=== PATIENT | male | born 1980 | race American Indian/Alaskan Native ===

== ENCOUNTER 2017-08-07 21:09 | Emergency (ER) | payer BC ==
[2017-08-07] MEDS ORDERED: LIDOCAINE VISCOUS 2% PO ONE (22:16)
[2017-08-07] MEDS ORDERED: ALUM-MAG HYDROX-SIMETH 200-200-20MG/5ML PO ONE (22:16)
[2017-08-07] MEDS ORDERED: ZOFRAN IM ONE (22:17)
--- NOTE | 2017-08-07 22:23 | Emergency Department Report ---
ED Abdominal Pain HPI - General Chief Complaint: Abdominal Pain Stated Complaint: ABDOMINAL PAIN Time Seen by Provider: 08/07/17 22:11 Source: patient Mode of arrival: Ambulatory Limitations: No Limitations - History of Present Illness Initial Comments: Patient is a 37 years old male with no significant past medical history except for peptic ulcer. Patient presented with 3 weeks' history of epigastric abdominal pain does not radiate. Patient is also complaining of nausea but no vomiting. No other complaints. MD Complaint: abdominal pain -: week(s) Location: epigastric Radiation: none Migration to: no migration Severity: moderate Severity scale (0 -10): 5 Quality: sharp Consistency: intermittent Associated Symptoms: nausea, diarrhea. denies: vomiting, hematemesis, hematochezia, melena, hematuria - Related Data Previous Rx's Medication Instructions Recorded Last Taken Type Cyclobenzaprine [Flexeril] 10 mg PO Q8H PRN #21 tablet 04/05/15 Unknown Rx HYDROcodone/APAP 10-325 [[place] 1 each PO Q6HR PRN #20 tablet 04/05/15 Unknown Rx 10/325] Benzonatate [Tessalon Perles] 100 mg PO Q8HR PRN #30 capsule 10/26/15 Unknown Rx Allergies Allergy/AdvReac Type Severity Reaction Status Date / Time No Known Allergies Allergy Unverified 04/05/15 06:55 ED Review of Systems ROS: Stated complaint: ABDOMINAL PAIN Other details as noted in HPI Comment: All other systems reviewed and negative Constitutional: denies: chills, fever Respiratory: denies: cough, orthopnea, shortness of breath, SOB with exertion, SOB at rest, wheezing Cardiovascular: denies: chest pain, palpitations, dyspnea on exertion Gastrointestinal: abdominal pain, nausea, diarrhea. denies: vomiting, constipation, hematemesis, melena ED Past Medical Hx - Past Medical History Previous Medical History?: Yes Hx Hypertension: Yes Hx Psychiatric Treatment: Yes (schizophrenia) - Surgical History Past Surgical History?: Yes Additional Surgical History: jaw, neck - Social History Smoking Status: Current Some Day Smoker Substance Use Type: None - Medications Home Medications: Home Medications Medication Instructions Recorded Confirmed Last Taken Type Cyclobenzaprine [Flexeril] 10 mg PO Q8H PRN #21 tablet 04/05/15 Unknown Rx HYDROcodone/APAP 10-325 [[place] 1 each PO Q6HR PRN #20 tablet 04/05/15 Unknown Rx 10/325] Benzonatate [Tessalon Perles] 100 mg PO Q8HR PRN #30 capsule 10/26/15 Unknown Rx ED Physical Exam - General Limitations: No Limitations General appearance: alert, in no apparent distress - Head Head exam: Present: atraumatic, normocephalic, normal inspection - Eye Eye exam: Present: normal appearance, PERRL - ENT ENT exam: Present: normal exam, normal orophraynx, mucous membranes moist - Neck Neck exam: Present: normal inspection, full ROM. Absent: tenderness, meningismus, lymphadenopathy - Respiratory Respiratory exam: Present: normal lung sounds bilaterally. Absent: respiratory distress, wheezes, rales, rhonchi, chest wall tenderness - Cardiovascular Cardiovascular Exam: Present: regular rate, normal rhythm, normal heart sounds - GI/Abdominal GI/Abdominal exam: Present: soft, normal bowel sounds. Absent: distended, tenderness, guarding, rebound, rigid, organomegaly, mass, bruit, pulsatile mass , hernia - Extremities Exam Extremities exam: Present: normal inspection, full ROM, normal capillary refill - Back Exam Back exam: Present: normal inspection, full ROM. Absent: tenderness, CVA tenderness (R), CVA tenderness (L) - Neurological Exam Neurological exam: Present: alert, oriented X3, CN II-XII intact, normal gait - Skin Skin exam: Present: warm, intact, normal color ED Course Vital Signs 08/07/17 08/07/17 21:22 22:10 Temperature 98.5 F Pulse Rate 115 H Respiratory 16 16 Rate Blood Pressure 158/109 [Left] O2 Sat by Pulse 97 Oximetry - Reevaluation(s) Reevaluation #1: 08/07/17 23:47 Patient is stated that he is having much better. No abdominal pain no nausea no vomiting. ED Medical Decision Making - Lab Data Result diagrams: 08/07/17 22:33 08/07/17 22:33 Critical care attestation.: If time is entered above; I have spent that time in minutes in the direct care of this critically ill patient, excluding procedure time. ED Disposition Clinical Impression: Abdominal pain, Gastritis Disposition: DC-01 TO HOME OR SELFCARE Is pt being admited?: No Condition: Stable Instructions: Abdominal Pain (ED), Peptic Ulcer (ED) Referrals: MARIA R MANDEL MD [Primary Care Provider] - 3-5 Days
[2017-08-07 22:55] LABS: Basophils # (Auto) 0.1 K/mm3 (0.0-0.1); Basophils % (Auto) 0.8 % (0.0-1.8); Eosinophils # (Auto) 0.1 K/mm3 (0.0-0.4); Eosinophils % (Auto) 0.7 % (0.0-4.3); Hematocrit 41.3 % (35.5-45.6); Hemoglobin 13.6 gm/dl (11.8-15.2); Lymphocytes # (Auto) 4.1 K/mm3 (1.2-5.4); Lymphocytes % (Auto) 42.7 % (13.4-35.0); Mean Corpuscular HGB Conc 33 % (32-34); Mean Corpuscular Hemoglobin 28 pg (28-32); Mean Corpuscular Volume 85 fl (84-94); Monocytes # (Auto) 0.6 K/mm3 (0.0-0.8); Monocytes % (Auto) 5.9 % (0.0-7.3); Platelet Count 291 K/mm3 (140-440); Red Blood Count 4.88 M/mm3 (3.65-5.03); Red Cell Distribution Width 13.7 % (13.2-15.2)
[2017-08-07 23:08] LABS: Alanine Aminotransferase 12 units/L (7-56); Albumin 4.3 g/dL (3.9-5); BUN/Creatinine Ratio 12; Blood Urea Nitrogen 11 mg/dL (9-20); Calcium 9.1 mg/dL (8.4-10.2); Hemolysis Index 8
[2017-08-07 23:20] LABS: Bilirubin,Urine NEG (Negative); Blood,Urine NEG (Negative); Color,Urine Yellow (Yellow); Mucus,Urine FEW /HPF; Protein,Urine <15 mg/dL mg/dL (Negative)
[2017-08-08 00:17] VITALS: BP 150/86
--- NOTE | 2017-08-08 01:07 | XRay Report ---
FINAL REPORT EXAM: XR ABDOMEN 1V AP HISTORY: abdominal pain COMPARISON: None available. FINDINGS: AP views of the abdomen obtained. Moderate to large amount stool within the colon. Gas scattered within non dilated bowl loops. No gross pathologic calcifications. Bony structures are grossly intact. Sclerotic lesion involving the right ilium measuring 1.8 x 1.0 centimeters. This may reflect a benign bone island. IMPRESSION: Moderate large amount of stool in the colon. Nonobstructive bowel gas pattern.
== END 2017-08-08 00:10 | disposition home or self-care (01) ==
LOC: ED 21:09
DX: K29.70 Gastritis, unspecified, without bleeding (principal); R10.13 Epigastric pain
CPT/HCPCS: 36415; 74018; 80053; 81001; 85025; 96372; 99284; J2405

== ENCOUNTER 2017-08-08 19:15 | Emergency (ER) | payer SELFPAY ==
--- NOTE | 2017-08-08 21:57 | Emergency Department Report ---
ED Abdominal Pain HPI - General Chief Complaint: Abdominal Pain Stated Complaint: ABD PAIN Time Seen by Provider: 08/08/17 21:14 Source: patient, RN notes reviewed, old records reviewed Mode of arrival: Ambulatory Limitations: No Limitations - History of Present Illness Initial Comments: This is a 37-year-old male who was previously unknown to this provider. He does not have a local primary care doctor. He does not have chronic medical conditions that he is aware of. He presents to the ER with right lower quadrant and right flank pain for 1 day. It is achy. It is intermittent. It does not radiate anywhere. It has no exacerbating or relieving factors. He denies irritative and obstructive urinary symptoms. He denies testicular pain. Patient seen in this ER recently for similar symptoms, had an x-ray which suggested constipation and abnormal laboratory studies. Patient requests his prescriptions be Refilled. MD Complaint: abdominal pain -: Gradual Location: RLQ, R flank Radiation: none Severity: mild Quality: stabbing Consistency: intermittent Improves With: nothing Worsens With: nothing Associated Symptoms: denies: nausea, vomiting, diarrhea, fever, chills, constipation, dysuria, hematemesis, hematochezia, melena, hematuria, anorexia, syncope - Related Data Previous Rx's Medication Instructions Recorded Last Taken Type Cyclobenzaprine [Flexeril] 10 mg PO Q8H PRN #21 tablet 04/05/15 Unknown Rx HYDROcodone/APAP 10-325 [[place] 1 each PO Q6HR PRN #20 tablet 04/05/15 Unknown Rx 10/325] Benzonatate [Tessalon Perles] 100 mg PO Q8HR PRN #30 capsule 10/26/15 Unknown Rx Esomeprazole Magnesium [NexIUM] 40 mg PO QDAY #30 capsule. 08/09/17 Unknown Rx Ondansetron [Zofran ODT TAB] 4 mg PO Q8HR PRN #14 tab.lianne 08/09/17 Unknown Rx Allergies Allergy/AdvReac Type Severity Reaction Status Date / Time No Known Allergies Allergy Unverified 04/05/15 06:55 ED Review of Systems ROS: Stated complaint: ABD PAIN Other details as noted in HPI Comment: All other systems reviewed and negative ED Past Medical Hx - Past Medical History Hx Hypertension: Yes Hx Psychiatric Treatment: Yes (schizophrenia) - Surgical History Additional Surgical History: jaw, neck - Social History Smoking Status: Current Every Day Smoker Substance Use Type: Alcohol, Marijuana - Medications Home Medications: Home Medications Medication Instructions Recorded Confirmed Last Taken Type Cyclobenzaprine [Flexeril] 10 mg PO Q8H PRN #21 tablet 04/05/15 Unknown Rx HYDROcodone/APAP 10-325 [[place] 1 each PO Q6HR PRN #20 tablet 04/05/15 Unknown Rx 10/325] Benzonatate [Tessalon Perles] 100 mg PO Q8HR PRN #30 capsule 10/26/15 Unknown Rx Esomeprazole Magnesium [NexIUM] 40 mg PO QDAY #30 capsule. 08/09/17 Unknown Rx Ondansetron [Zofran ODT TAB] 4 mg PO Q8HR PRN #14 tab.lianne 08/09/17 Unknown Rx ED Physical Exam - General Limitations: No Limitations General appearance: alert, in no apparent distress - Head Head exam: Present: atraumatic, normocephalic - Eye Eye exam: Present: normal appearance, EOMI. Absent: nystagmus - ENT ENT exam: Present: normal exam, normal orophraynx, mucous membranes moist, normal external ear exam - Neck Neck exam: Present: normal inspection, full ROM - Respiratory Respiratory exam: Present: normal lung sounds bilaterally. Absent: respiratory distress - Cardiovascular Cardiovascular Exam: Present: regular rate, normal rhythm, normal heart sounds. Absent: systolic murmur, diastolic murmur, rubs, gallop - GI/Abdominal GI/Abdominal exam: Present: soft, normal bowel sounds. Absent: distended, tenderness, guarding, rebound, rigid, pulsatile mass - Rectal Rectal exam: Present: deferred - Extremities Exam Extremities exam: Present: normal inspection, full ROM, normal capillary refill. Absent: tenderness, pedal edema, joint swelling, calf tenderness - Back Exam Back exam: Present: normal inspection, full ROM. Absent: tenderness, CVA tenderness (R), paraspinal tenderness, vertebral tenderness - Neurological Exam Neurological exam: Present: alert, oriented X3, CN II-XII intact, normal gait, other (Extraocular movements intact. Tongue midline. No facial droop. Facial sensation intact to light touch in the V1, V2, V3 distribution bilaterally. 5 and 5 strength in 4 extremities.. Sensation is intact to light touch in 4 extremities.). Absent: motor sensory deficit - Psychiatric Psychiatric exam: Present: normal affect, normal mood - Skin Skin exam: Present: warm, dry, intact, normal color. Absent: rash ED Course Vital Signs 08/08/17 08/08/17 08/08/17 19:21 22:48 22:50 Temperature 98.6 F Pulse Rate 80 80 Respiratory 16 18 Rate Blood Pressure 207/98 207/98 Blood Pressure [Right] O2 Sat by Pulse 100 Oximetry 08/08/17 08/09/17 23:39 00:06 Temperature 98.8 F Pulse Rate 82 Respiratory 18 18 Rate Blood Pressure Blood Pressure 170/112 [Right] O2 Sat by Pulse 100 98 Oximetry ED Medical Decision Making - Lab Data Vital Signs 08/08/17 19:21 Temperature 98.6 F Pulse Rate 80 Respiratory 16 Rate Blood Pressure 207/98 O2 Sat by Pulse 100 Oximetry - Radiology Data Radiology results: report reviewed, image reviewed Print Report Referring Physician: CHELSEA VALDOVINOS Patient Name: ANCA MAHAN Date of : 1980 Sex: Male Report Date: 2017-08-08 Report Status: Finalized Findings [facility] [address] [place] [address] XRay Report Signed Patient: ANCA MAHAN MR#: [id number] : 1980 Acct:[id number] Age/Sex: 37 / M ADM Date: 08/07/17 Loc: ED Attending Dr: Ordering Physician: CHELSEA VALDOVINOS Date of Service: 08/07/17 Procedure(s): XR abdomen 1V ap Accession Number(s): [id number] cc: CHELSEA VALDOVINOS Fluoro Time In Minutes: FINAL REPORT EXAM: XR ABDOMEN 1V AP HISTORY: abdominal pain COMPARISON: None available. FINDINGS: AP views of the abdomen obtained. Moderate to large amount stool within the colon. Gas scattered within non dilated bowl loops. No gross pathologic calcifications. Bony structures are grossly intact. Sclerotic lesion involving the right ilium measuring 1.8 x 1.0 centimeters. This may reflect a benign bone island. IMPRESSION: Moderate large amount of stool in the colon. Nonobstructive bowel gas pattern. Transcribed By: LMA Dictated By: AMANDA BRIDGES MD Electronically Authenticated By: AMANDA BRIDGES MD Signed Date/Time: 08/08/17 010 - Medical Decision Making Differential diagnosis, including but not limited to: AAA, renal colic, appendicitis, constipation, incidental hypertension/elevated blood pressure Assessment and plan: 37-year-old male with right flank and right lower quadrant abdominal pain, hypertensive, Denies urinary symptoms, denies testicular pain. Recently had negative laboratory studies at this hospital yesterday. Incidental hypertension is appreciated. Given Tucks the position of abdominal pain, flank pain and hypertension, CT scan was obtained to exclude aortic disease and was negative, patient felt improved after pain medication, blood pressure improved, his prescriptions will be refilled, and he will be instructed to follow up with outpatient primary care. Return precautions are reviewed. At the time of discharge, the patient' s abdomen was soft and benign, with no rebound, guarding or peritoneal signs, he is sleeping comfortably in the stretcher, has negative Canales sign, negative Rovsing sign, negative obturator sign, and no right lower quadrant tenderness. Critical care attestation.: If time is entered above; I have spent that time in minutes in the direct care of this critically ill patient, excluding procedure time. ED Disposition Clinical Impression: Abdominal pain Disposition: DC-01 TO HOME OR SELFCARE Is pt being admited?: No Does the pt Need Aspirin: No Condition: Good Additional Instructions: Take medications as directed. Drink 6-8 cups of water per day. Follow up with the primary care doctor within the next 3-4 weeks. Please note that blood pressure was elevated. This should be followed up by a primary care doctor within the next month. Long-term complications of hypertension and elevated blood pressure include stroke, heart attack, disability, paralysis, loss of quality of life. Return to the ER right away with new pain, worsened pain, migration of pain, fevers, chills, lethargy, irritability, projectile vomiting, change in mental status, confusion, inability to tolerate liquid feeds. Referrals: PRIMARY CARE, [Primary Care Provider] - 3-5 Days [facility] MD [Staff Physician] - 3-5 Days
[2017-08-08] MEDS ORDERED: ZOFRAN IV ONE (22:03)
[2017-08-08] MEDS ORDERED: PEPCID IV ONE (22:03)
[2017-08-08] MEDS ORDERED: TORADOL IV ONE (22:03)
[2017-08-08] MEDS ORDERED: APRESOLINE IV ONE (22:03)
--- NOTE | 2017-08-08 23:21 | Cat Scan Report ---
FINAL REPORT PROCEDURE: CT ABDOMEN PELVIS W CON TECHNIQUE: Computerized axial tomography of the abdomen and pelvis was performed after the IV injection of iodinated nonionic contrast. HISTORY: rlq abd pain COMPARISON: No prior studies are available for comparison. FINDINGS: Visualized lower thorax: No significant abnormality. Liver: Normal size and attenuation. Spleen: Normal size and attenuation. Gallbladder and biliary system: Normal. Pancreas: Normal. Adrenals: Normal. Kidneys: There is 1.2 cm cyst of the right kidney. GI tract: No dilated loops of large or small bowel. Appendix is normal. Diverticulosis of the sigmoid colon. Lymph nodes and mesentery: Normal. Vasculature: Normal. Bladder: Normal. Reproductive organs: Normal. Peritoneum: No free fluid. Musculoskeletal structures: No significant abnormality. Other: None. IMPRESSION: Colonic diverticulosis. No obstruction. Appendix is normal
[2017-08-09 00:08] VITALS: BP 170/112
== END 2017-08-09 00:27 | disposition home or self-care (01) ==
LOC: ED 19:15
DX: R10.31 Right lower quadrant pain (principal); I10 Essential (primary) hypertension; F20.9 Schizophrenia, unspecified; F17.200 Nicotine dependence, unspecified, uncomplicated; F12.10 Cannabis abuse, uncomplicated
CPT/HCPCS: 74177; 96374; 96375; 99283; J0360; J1885; J2405; Q9967

== ENCOUNTER 2018-03-22 18:27 | Emergency (ER) | payer SELFPAY ==
[2018-03-22 18:51] VITALS: BP 131/83
[2018-03-22] MEDS ORDERED: TORADOL IM ONE (20:51)
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
== END 2018-03-22 21:20 | disposition home or self-care (01) ==
LOC: ED 18:27
DX: M54.5 Low back pain (principal); G89.29 Other chronic pain; L30.9 Dermatitis, unspecified; I10 Essential (primary) hypertension; F20.9 Schizophrenia, unspecified; Z79.899 Other long term (current) drug therapy
CPT/HCPCS: 96372; 99282; J1885

== ENCOUNTER 2018-09-10 18:15 | Emergency (ER) | payer OTHER ==
--- NOTE | 2018-09-10 18:34 | Emergency Department Report ---
Chief Complaint: Skin/Abscess/Foreign Body Stated Complaint: SPIDER BITE ON RT ARM Time Seen by Provider: 09/10/18 18:30 - HPI History of Present Illness: pt presents with a possible insect bite to the right forearm that began three days ago he did not see what bit him has edema and some mild erythema no fever, no drainage appears to be abscess on right forearm will need I&D MSE screening note: Focused history and physical exam performed. ED Disposition for MSE Condition: Stable
[2018-09-10] MEDS ORDERED: ROCEPHIN IM ONE (21:31)
[2018-09-10] MEDS ORDERED: XYLOCAINE 1% MPF 5 mL INFILTRATI ONE (21:31)
[2018-09-10] MEDS ORDERED: BOOSTRIX IM ONE (21:31)
--- NOTE | 2018-09-10 21:35 | Emergency Department Report ---
Abscess Boil HPI - HPI Chief Complaint: Skin/Abscess/Foreign Body Stated Complaint: SPIDER BITE ON RT ARM Time Seen by Provider: 09/10/18 18:30 Duration: 5 Days Location: Upper Extremity Severity: Mild History: Yes Purulent Drainage, No Fever, No Pain, No Numbness, No Foreign Body, No Previous History, No Insect Bite HPI: Patient is a 38-year-old male who comes in with an abscess draining on his right arm. He did not see anything bite him. He did give plasma recently and has some ecchymosis at the antecubital fossa. He has good pulses and rapid cap refill. Allergies/Adverse Reactions: Allergies Allergy/AdvReac Type Severity Reaction Status Date / Time No Known Allergies Allergy Verified 09/10/18 18:17 ED Review of Systems ROS: Stated complaint: SPIDER BITE ON RT ARM Other details as noted in HPI Comment: All other systems reviewed and negative Skin: as per HPI, lesions ED Past Medical Hx - Past Medical History Previous Medical History?: Yes Hx Hypertension: Yes Hx Psychiatric Treatment: Yes (schizophrenia) Additional medical history: chronic neck and back pain. - Surgical History Additional Surgical History: jaw, neck - Social History Smoking Status: Never Smoker Substance Use Type: Alcohol ED Abscess Boil Physical Exam - Exam General: Vital signs noted. No distress. Alert and acting appropriately. Size: 3 cm Exam: Yes Tenderness, Yes Heart Murmur, Yes Normal Neurologic Exam, Yes Normal Circulation, No Fluctuance, No Surrounding Cellulites/Erythema, No Lymphangitis I & D Note - I & D Note I & D Note: 1% lido 2 ml for anesthesia. opened with no 10 blade. mod amount purulent drainage. wound cleaned and dressed. tolerated well. educated on wound care ED Course Vital Signs 09/10/18 18:30 Temperature 99.4 F Pulse Rate 89 Respiratory 16 Rate Blood Pressure 141/90 O2 Sat by Pulse 99 Oximetry Critical care attestation.: If time is entered above; I have spent that time in minutes in the direct care of this critically ill patient, excluding procedure time. ED Medical Decision Making - Medical Decision Making simple abscess draining elevated bp no history of htn discussed follow up with patient rocephin IM tdap given dc home with follow up plan of care Vital Signs 09/10/18 18:30 Temperature 99.4 F Pulse Rate 89 Respiratory 16 Rate Blood Pressure 141/90 O2 Sat by Pulse 99 Oximetry EMR DOWN BACTRUM DS PO BID X 5 DAYS , QS, NR CALLED TO [facility] ED Disposition Clinical Impression: Abscess, Elevated blood pressure reading Disposition: TO HOME OR SELFCARE Is pt being admited?: No Does the pt Need Aspirin: No Condition: Stable Instructions: Abscess (ED) Additional Instructions: warm compresses motrin or tylenol for pain med as ordered today diet as tolerated activity as tolerated monitor blood pressure referral below as we discussed low fat low salt diet hydrate well with water Referrals: [facility] [Outside] - 3-5 Days Time of Disposition: 21:33
[2018-09-12 17:59] VITALS: BP 130/70
== END 2018-09-10 23:34 | disposition home or self-care (01) ==
LOC: ED 18:15
DX: L02.413 Cutaneous abscess of right upper limb (principal); I10 Essential (primary) hypertension; F20.9 Schizophrenia, unspecified
CPT/HCPCS: 10060; 90471; 90715; 96372; 99282; J0696